=== PATIENT | male | born 1980 | race Two or more races ===

== ENCOUNTER 2019-08-02 13:32 | Emergency (ER) | payer MEDICAID, OTHER ==
[~2019-08-02] VITALS: Ht 170.2 cm; Wt 115.7 kg
[2019-08-02 14:31] VITALS: BP 140/87
== END 2019-08-02 15:40 | disposition home or self-care (01) ==
LOC: ER 13:35
DX: M79.605 Pain in left leg (principal); G89.29 Other chronic pain; Z60.2 Problems related to living alone